=== PATIENT | female | born 1935 | race Caucasian/White ===

== ENCOUNTER 2020-05-16 14:30 | Emergency (ER) | payer MEDICARE, BC ==
[~2020-05-16] VITALS: Ht 157.5 cm; Wt 78.2 kg
[2020-05-16 14:45] VITALS: TEMP 97.9
[2020-05-16] MEDS ORDERED: SEROQUEL 2525 MG/TAB PO (15:10)
[2020-05-16] MEDS ORDERED: NORVASC 5MG5 MG/TAB PO (15:11)
[2020-05-16] MEDS ORDERED: TYLENOL PM EXTR1 TA1 PO (15:11)
[2020-05-16] MEDS ORDERED: CALCIUM 600 MG1 EAC2 PO (15:13)
[2020-05-16] MEDS ORDERED: ASPIRIN 81M81 MG/TA2 PO (15:14)
[2020-05-16] MEDS ORDERED: ONE-A-DAY ESSE1 EACH PO (15:14)
[2020-05-16] MEDS ORDERED: MYSOLINE 250MG250 MG PO (15:15)
[2020-05-16 15:31] LABS: COLLECTION METHOD CLEAN CATCH
[2020-05-16 15:37] LABS: PH 6 (5-8); SQUAMOUS EPITHELIAL 0-2 /hpf; URINE APPEARANCE Clear; URINE BACTERIA Rare /hpf; URINE BILIRUBIN Negative (NEGATIVE); URINE BLOOD Negative (NEGATIVE); URINE COLOR Yellow; URINE GLUCOSE Negative (NEGATIVE); URINE KETONE Negative (NEGATIVE); URINE LEUKOCYTE ESTERASE Negative (NEGATIVE); URINE NITRATE Negative (NEGATIVE); URINE PROTEIN(semi-quant) Negative (NEGATIVE); URINE RBC 0-2 /hpf; URINE UROBILINOGEN Negative (NEGATIVE)
[2020-05-16 15:50] LABS: BASO % 0.5 % (0.0-2.0); EOS # 0.1 (0.0-0.7); EOS % 1.1 % (0-4.0); GRAN # 4.8 (1.4-6.5); GRAN % 71.6 % (42.2-75.2); HEMATOCRIT 39.5 % (37.0-47.0); HEMOGLOBIN 12.5 g/dl (12.5-16.0); LYMPH # 1.3 (1.2-3.4); LYMPH % 19.2 % (20.0-51.0); MEAN CELL VOLUME 93 fl (80.0-100.0); MEAN CORPUSCULAR HEMOGLOBIN 29 pg (27.0-31.0); MEAN CORPUSCULAR HGB CONC 32 g/dl (33.0-37.0); MEAN PLATELET VOLUME 10.4 fl (7.4-10.4); MONO # 0.5 (0.1-0.6); MONO % 7.3 % (1.7-9.3); PLATELET COUNT 264 K/mm3 (130-400); RED BLOOD COUNT 4.27 M/mm3 (4.10-5.30); REDCELL DISTRIBUTION WIDTH-CV 14.4 % (11.5-14.5)
[2020-05-16 16:02] LABS: ALBUMIN 3.9 gm/dL (3.5-5.0); BILIRUBIN,TOTAL 0.4 mg/dL (0.0-1.0); C-REACTIVE PROTEIN 0.8 mg/dL (0.0-0.9); POTASSIUM 4.1 mmol/L (3.4-5.0); TOTAL PROTEIN 6.6 gm/dL (6.4-8.2)
[2020-05-16 16:41] VITALS: BP 140/90; PULSE 67
== END 2020-05-16 16:41 | disposition home or self-care (01) ==
LOC: COL.ER 14:30
PROVIDERS: Nurse Practitioner
DX: G20 Parkinson's disease (principal); R45.1 Restlessness and agitation; Z90.710 Acquired absence of both cervix and uterus; Z88.8 Allergy status to other drugs, medicaments and biological substances; Z79.82 Long term (current) use of aspirin
CPT/HCPCS: J7030

== ENCOUNTER 2020-07-20 18:41 | Observation (INO) | payer MEDICARE, BC ==
[~2020-07-20] VITALS: Ht 157.5 cm; Wt 76.7 kg
[~2020-07-20 18:41] MED LIST: ASPIRIN 81M81 MG/TA2 PO; CALCIUM 600 MG1 EAC2 PO; MYSOLINE 250MG250 MG PO; NORVASC 5MG5 MG/TAB PO; ONE-A-DAY ESSE1 EACH PO; SEROQUEL 2525 MG/TAB PO; TYLENOL PM EXTR1 TA1 PO
[2020-07-20 19:45] LABS: ALANINE AMINOTRANSFERASE 14 U/L (4-34); ALBUMIN 3.9 gm/dL (3.5-5.0); ALKALINE PHOSPHATASE 74 U/L (50-136); ANION GAP 9 mmol/L (7-16); AST,SGOT 28 U/L (15-37); BILIRUBIN,TOTAL 0.4 mg/dL (0.0-1.0); BLOOD UREA NITROGEN 19 mg/dL (7-17); CARBON DIOXIDE 26 mmol/L (22-30); CHLORIDE 104 mmol/L (98-107); CREATININE, serum 1.11 (0.52-1.25); GLUCOSE 112 mg/dL (74-106); POTASSIUM 4.4 mmol/L (3.4-5.0); SODIUM 139 mmol/L (137-145)
[2020-07-20 19:54] LABS: COLLECTION METHOD CLEAN CATCH
[2020-07-20 20:04] LABS: BASO % 0.3 % (0.0-2.0); EOS # 0.1 (0.0-0.7); EOS % 1.1 % (0-4.0); GRAN % 68.4 % (42.2-75.2); HEMOGLOBIN 11.2 g/dl (12.5-16.0); LYMPH # 1.5 (1.2-3.4); LYMPH % 20.5 % (20.0-51.0); MEAN CELL VOLUME 92 fl (80.0-100.0); MEAN CORPUSCULAR HEMOGLOBIN 29 pg (27.0-31.0); MEAN CORPUSCULAR HGB CONC 32 g/dl (33.0-37.0); MEAN PLATELET VOLUME 10.8 fl (7.4-10.4); MONO # 0.7 (0.1-0.6); MONO % 9.4 % (1.7-9.3); PLATELET COUNT 249 K/mm3 (130-400); RED BLOOD COUNT 3.84 M/mm3 (4.10-5.30); REDCELL DISTRIBUTION WIDTH-CV 15.1 % (11.5-14.5)
[2020-07-20 20:04] LABS: TROPONIN-I < 0.012 ng/mL (0.000-0.035)
[2020-07-20 20:07] LABS: HEMATOCRIT 35.3 % (37.0-47.0)
[2020-07-20 20:08] LABS: PROTHROMBIN TIME 10.8 SECONDS (9.7-12.8)
[2020-07-20 20:16] LABS: PH 6 (5-8); SQUAMOUS EPITHELIAL 0-2 /hpf; URINE APPEARANCE Clear; URINE BACTERIA None Seen /hpf; URINE BILIRUBIN Negative (NEGATIVE); URINE BLOOD 2+ (NEGATIVE); URINE COLOR Yellow; URINE GLUCOSE Negative (NEGATIVE); URINE KETONE Negative (NEGATIVE); URINE LEUKOCYTE ESTERASE Negative (NEGATIVE); URINE NITRATE Negative (NEGATIVE); URINE PROTEIN(semi-quant) Negative (NEGATIVE); URINE RBC 0-2 /hpf; URINE UROBILINOGEN Negative (NEGATIVE)
[2020-07-20] MEDS ORDERED: ATIVAN 0.50.5 MG/TAB PO (22:08)
--- NOTE | 2020-07-20 22:30 | NUR ---
SEE PRIOR NOTE.
--- NOTE | 2020-07-20 22:41 | NUR ---
PT ARRIVED FROM ED, VIA GURNEY AND ED NURSE. PT WAS ABLE TO AMBULATE X2 ASSIST BY SIDE. PT A/O X1 TO SELF. PT [facility]IN[facility] ALSO, SHE THINKS IT IS 1994. PT DENIES PAIN OR DISCOMFORT. NO SKIN ISSUES EXCEPT FOR MULTIPLE BRUISES ON HER LEGS AND ARMS THAT ARE SCATTERED. PT WORRIED ABOUT THE PRICES FOR HER MEALS. PT CAN ANSWER SOME QUESTIONS CORRECTLY. PT ALSO STATES THAT HER LAST BOWEL MOVEMENT WAS A COUPLE OF DAYS AGO. CALL LIGHT WITHIN REACH AND BED ALARM ON.
[2020-07-20 23:13] VITALS: BP 146/64; PULSE 57; TEMP 98
[2020-07-21] VITALS (8 sets, daily range): BP systolic 101–148; BP diastolic 40–58; PULSE 49–66; TEMP 97.6–98.2
--- NOTE | 2020-07-21 00:48 | NUR ---
PT HAD AN EPISODE OF NAUSEA AND VOMITING. PT DECLINED ANYTHING FOR IT. DID ADVISE ISAIAH GARAY OF INCIDENT. ALSO PT CLIMBED OVER RAIL TO GET OUT OF BED. PT WAS ASKED IF SHE NEEDED TO USE THE BATHROOM OR WHAT SHE NEEDED. PT DECLINED AND DID NOT NEED ANYTHING. PT STATED THAT SHE CLIMBS OVER THINGS AT HOME. PT WAS ADVISED TO PLEASE USE THE CALL LIGHT OR WE ARE RIGHT OUTSIDE THE DOOR TO CALL FOR US. PT STATED THAT SHE DID NOT KNOW HOW TO USE THE CALL LIGHT. SHE CALLED IT A THING.
--- NOTE | 2020-07-21 01:37 | NUR ---
PT TRIED TO GET OUT OF BED AGAIN, AND WAS REDIRECTED. IT TOOK SOME TIME TO REDIRECT HER. PT THOUGHT THAT HER WAS OUTSIDE THE ROOM. PT WANTED TO WALK TO THE NURSES' STATION, BUT GAIT UNSTEADY. OFFERED TO TAKE TO THE BATHROOM OR USE BEDSIDE COMMODE AND PT REFUSED. PT DID EVENTUALLY GET BACK IN BED AFTER ABOUT 15 TO 20 MINUTES OF TALKING TO HER. PT HAS CALL LIGHT WITHIN REACH AND BED ALARM ON.
--- NOTE | 2020-07-21 04:32 | NUR ---
PT HAD NO URINATED SINCE SHE HAS GOTTEN TO THE UNIT. NOTIFIED ISAIAH GARAY, AND SHE ADVISED IF SHE DOES NOT VOID SOON TO BLADDER SCAN AND GIVE HER A CALL. WENT INTO PT'S ROOM AND BLADDER SCANNED HER, SHE ONLY HAD OVE 200 ML IN BLADDER. PT DECIDED THAT SHE NEEDED TO GO TO THE BATHROOM AFTER BEING BLADDER SCANNED. PT'S OUTPUT OF URINE WAS 200 ML AND SHE DID HAVE A LITTLE INCONTINENCE. PT DID GO BACK TO BED WITH NO PROBLEM.
--- NOTE | 2020-07-21 08:10 | NUR ---
Dr Cortes here to see patient.
--- NOTE | 2020-07-21 08:53 | NUR ---
Pt is awake and obeys commands after a few (2-3) attempts. Pt is confused where she is and has some disorientation. Heart tones are present and no murmurs noted. Lung sounds are clear all lobes. Pt deniend abdominal auscultation, but abdomen is flat and non-distended. Ortostatic vitals were obtained this morning. Dr. Cortes came in and consulted with the patient and daughter.
[2020-07-21 09:10] LABS: BASO % 0.3 % (0.0-2.0); EOS # 0.2 (0.0-0.7); EOS % 2.3 % (0-4.0); GRAN # 3.8 (1.4-6.5); GRAN % 54.5 % (42.2-75.2); HEMATOCRIT 35.9 % (37.0-47.0); HEMOGLOBIN 11.7 g/dl (12.5-16.0); LYMPH # 2.4 (1.2-3.4); LYMPH % 33.8 % (20.0-51.0); MEAN CELL VOLUME 91 fl (80.0-100.0); MEAN CORPUSCULAR HEMOGLOBIN 30 pg (27.0-31.0); MEAN CORPUSCULAR HGB CONC 33 g/dl (33.0-37.0); MEAN PLATELET VOLUME 10.8 fl (7.4-10.4); MONO # 0.6 (0.1-0.6); MONO % 8.8 % (1.7-9.3); PLATELET COUNT 244 K/mm3 (130-400); RED BLOOD COUNT 3.93 M/mm3 (4.10-5.30); REDCELL DISTRIBUTION WIDTH-CV 15.2 % (11.5-14.5)
[2020-07-21 09:14] LABS: CALCIUM 8.6 mg/dL (8.4-10.2); CREATININE, serum 0.94 (0.52-1.25); POTASSIUM 4.3 mmol/L (3.4-5.0)
--- NOTE | 2020-07-21 10:18 | NUR ---
GIRMA contacted the patient's daughter, Nargis Ibrahim (ph#[phone]), to discuss discharge plan. The patient lives in [place] with her other daughter, Chica. Nargis reports that the patient needs some supervision with using the restroom and bathing and that she has a rolaider. The patient's PCP is Dr. Patrick Hodge and she receives her medications from [facility]. Nargis reports no difficulties obtaining the patient's meds. The patient does not have a DPOA-HC in EMR. Nargis reports that she believes the patient has one done and that it designated her late sister and then herself and then Chica. She reports she is unsure where the document is at at would have to look for it. Nargis reports that the patient's has and that she has two living children: Herself and Chica. Nargis reports that she is unsure if they would want to pursue shelter vs home with home health. She reports that the patient has eye surgery on Monday. PT/OT are recommending home with home health. GIRMA informed Nargis of this and how shelter placement would be [id number] with her being observation status. Nargis reports that she will need to talk to her sister, but that they will probably look at home with home health. Nargis requests that SW leave the Medicare.gov list of home health agencies that serve [place] at the nurses station and she will ask for it when she comes in after work this evening. Nargis would like to look over the list with the patient and her sister to decide on preference. SW to continue to follow. *Discharge plan: home with daughter and home health*
--- NOTE | 2020-07-21 11:17 | NUR ---
Patient alert, confusion upon waking, but clear now. Answers questions appropriately. Gait shuffling, uses walker with ambulation. 2+ BLE edema noted, pulses 1+. No c/o at this time.
--- NOTE | 2020-07-21 13:05 | NUR ---
Patient gradually has become combative since approximately 1130 this a.m. Continually yelling, stating "the Doctor told me I can go home and I want to leave". Difficult at times to redirect. Patients daughter calls and request patient remains in hospital until "patient stops hitting the windows and hernadez at night". Daughter states patient "wanders all night long and daughter doesn't get any sleep because of it". Offered to speak with social work about patient placement, daughter denies, would prefer she remain in hospital "until you can make her stop hitting the windows and hernadez". Reviewed with daughter that patient will need cephalometric technician placement for this, denied.
--- NOTE | 2020-07-21 13:44 | NUR ---
GIRMA attended clinical rounds. The patient is ready to d/c today. GIRMA attempted to contact the patient's daughter, Nargis, to update. GIRMA was unable to leave a voicemail, due to her mailbox being full. GIRMA then contacted and updated the patient's daughter, Chica. The patient's RN then notified GIRMA that Chica is reporting that the patient gets up at night and bangs on the windows and would like for the patient to stay here until her behaviors are resolved. Nargis then contacted the surgical unit and her RN was able to give her an update. Her RN then transferred Nargis to this . Nargis is agreeable with the patient discharging today and would like to go ahead and use [facility] again. She states that the patient used to receive services from them in the past. Nargis reports that she will be up to the hospital after work to bring the patient home. GIRMA updated the clinical team. GIRMA contacted and faxed a referral to Jillian at [facility]. Awaiting screen.
--- NOTE | 2020-07-21 13:49 | NUR ---
Initial visit; Patient having a difficult time communicating. Selin continued to frustrate herself trying to conversate with Shoe Repairer Helper. Shoe Repairer Helper listened, offered empathy (while discerning patient was showing signs of dementia or alzheimers disease. Shoe Repairer Helper offered God's blessings to patient and wished her well.
[2020-07-21] MEDS ORDERED: MELATIN 3 MG-11 TAB PO (13:59)
[2020-07-21] MEDS ORDERED: SINEMET 25/101 UDTAB PO (14:03)
--- NOTE | 2020-07-21 16:06 | NUR ---
Jillian, at [facility], reports that they are able to accept the patient for services. The patient is to discharge back home with her daughter today, 07/21, with home health services for shelter/PT/OT from [facility]. SW notified and faxed d/c orders to Jillian at [facility]. No additional needs at this time.
--- NOTE | 2020-07-21 18:59 | NUR ---
Discharge instructions reviewed with patient and daughter, verbalized understanding. Discharged via wheelchair to auto/home with family at 1900.
== END 2020-07-21 18:59 | disposition home or self-care (01) ==
LOC: COL.ER 18:41 → SURG 20:41
PROVIDERS: Emergency Medicine; Student in an Organized Health Care Education/Training Program; ADMIT Family Medicine
DX: G20 Parkinson's disease (principal); G47.9 Sleep disorder, unspecified; R44.3 Hallucinations, unspecified; H33.312 Horseshoe tear of retina without detachment, left eye; D64.9 Anemia, unspecified; I10 Essential (primary) hypertension; I95.1 Orthostatic hypotension; F02.80 Dementia in other diseases classified elsewhere, unspecified severity, without behavioral disturbance, psychotic disturbance, mood disturbance, and anxiety; Z88.8 Allergy status to other drugs, medicaments and biological substances; Z90.710 Acquired absence of both cervix and uterus; Z89.422 Acquired absence of other left toe(s); Z79.82 Long term (current) use of aspirin; W19.XXXA Unspecified fall, initial encounter; Z79.899 Other long term (current) drug therapy
CPT/HCPCS: 99223-AI; G0378; J1650

== ENCOUNTER 2020-07-31 08:15 | Emergency (ER) | payer MEDICARE, BC ==
[~2020-07-31] VITALS: Ht 157.5 cm; Wt 74.5 kg
[~2020-07-31 08:15] MED LIST changes: +ATIVAN 0.50.5 MG/TAB PO; +MELATIN 3 MG-11 TAB PO; +SINEMET 25/101 UDTAB PO
[2020-07-31 08:23] VITALS: TEMP 97.6
[2020-07-31 09:44] LABS: BASO % 0.5 % (0.0-2.0); EOS # 0.1 (0.0-0.7); EOS % 1.7 % (0-4.0); GRAN # 4.3 (1.4-6.5); GRAN % 66.5 % (42.2-75.2); HEMATOCRIT 40.7 % (37.0-47.0); HEMOGLOBIN 13.1 g/dl (12.5-16.0); LYMPH # 1.6 (1.2-3.4); LYMPH % 24.8 % (20.0-51.0); MEAN CELL VOLUME 91 fl (80.0-100.0); MEAN CORPUSCULAR HEMOGLOBIN 29 pg (27.0-31.0); MEAN CORPUSCULAR HGB CONC 32 g/dl (33.0-37.0); MEAN PLATELET VOLUME 10.1 fl (7.4-10.4); MONO # 0.4 (0.1-0.6); MONO % 6.3 % (1.7-9.3); PLATELET COUNT 254 K/mm3 (130-400); RED BLOOD COUNT 4.48 M/mm3 (4.10-5.30); REDCELL DISTRIBUTION WIDTH-CV 14.8 % (11.5-14.5)
[2020-07-31 09:54] LABS: ALANINE AMINOTRANSFERASE 5 U/L (4-34); ALBUMIN 3.7 gm/dL (3.5-5.0); ALKALINE PHOSPHATASE 86 U/L (50-136); ANION GAP 6 mmol/L (7-16); AST,SGOT 25 U/L (15-37); BILIRUBIN,TOTAL 0.2 mg/dL (0.0-1.0); BLOOD UREA NITROGEN 11 mg/dL (7-17); CALCIUM 8.9 mg/dL (8.4-10.2); CARBON DIOXIDE 29 mmol/L (22-30); CHLORIDE 105 mmol/L (98-107); CREATININE, serum 0.91 (0.52-1.25); GLUCOSE 102 mg/dL (74-106); LIPASE 42 U/L (23-300); POTASSIUM 4.4 mmol/L (3.4-5.0); SODIUM 140 mmol/L (137-145); TOTAL PROTEIN 6.8 gm/dL (6.4-8.2)
[2020-07-31 10:11] LABS: TROPONIN-I < 0.012 ng/mL (0.000-0.035)
[2020-07-31 10:26] VITALS: BP 147/56; PULSE 59
== END 2020-07-31 10:26 | disposition home or self-care (01) ==
LOC: COL.ER 08:15
PROVIDERS: Emergency Medicine
DX: G20 Parkinson's disease (principal); Z88.1 Allergy status to other antibiotic agents; Z79.82 Long term (current) use of aspirin

== ENCOUNTER 2020-08-14 21:20 | Emergency (ER) | payer MEDICARE, BC ==
[~2020-08-14] VITALS: Ht 157.5 cm; Wt 77.3 kg
[2020-08-14 21:21] VITALS: TEMP 98.5
[2020-08-14 22:19] LABS: BASO % 0.1 % (0.0-2.0); EOS # 0.1 (0.0-0.7); EOS % 1.1 % (0-4.0); GRAN # 6.9 (1.4-6.5); GRAN % 75.8 % (42.2-75.2); HEMOGLOBIN 11.8 g/dl (12.5-16.0); LYMPH # 1.4 (1.2-3.4); LYMPH % 14.8 % (20.0-51.0); MEAN CELL VOLUME 91 fl (80.0-100.0); MEAN CORPUSCULAR HEMOGLOBIN 29 pg (27.0-31.0); MEAN CORPUSCULAR HGB CONC 32 g/dl (33.0-37.0); MEAN PLATELET VOLUME 10.4 fl (7.4-10.4); MONO # 0.7 (0.1-0.6); MONO % 7.7 % (1.7-9.3); PLATELET COUNT 279 K/mm3 (130-400); RED BLOOD COUNT 4.09 M/mm3 (4.10-5.30); REDCELL DISTRIBUTION WIDTH-CV 14.5 % (11.5-14.5)
[2020-08-14 22:28] LABS: ALANINE AMINOTRANSFERASE 14 U/L (4-34); ALBUMIN 3.9 gm/dL (3.5-5.0); ALKALINE PHOSPHATASE 77 U/L (50-136); ANION GAP 8 mmol/L (7-16); AST,SGOT 25 U/L (15-37); BILIRUBIN,TOTAL 0.3 mg/dL (0.0-1.0); BLOOD UREA NITROGEN 20 mg/dL (7-17); CALCIUM 8.9 mg/dL (8.4-10.2); CARBON DIOXIDE 26 mmol/L (22-30); CHLORIDE 103 mmol/L (98-107); CREATININE, serum 1.01 (0.52-1.25); GLUCOSE 104 mg/dL (74-106); POTASSIUM 4.1 mmol/L (3.4-5.0); SODIUM 137 mmol/L (137-145); TOTAL PROTEIN 6.9 gm/dL (6.4-8.2)
[2020-08-14 22:30] LABS: COLLECTION METHOD CLEAN CATCH
[2020-08-14 22:37] LABS: PH 6 (5-8); SQUAMOUS EPITHELIAL 0-2 /hpf; URINE APPEARANCE Clear; URINE BACTERIA None Seen /hpf; URINE BILIRUBIN Negative (NEGATIVE); URINE BLOOD Negative (NEGATIVE); URINE COLOR Yellow; URINE GLUCOSE Negative (NEGATIVE); URINE KETONE Negative (NEGATIVE); URINE LEUKOCYTE ESTERASE Negative (NEGATIVE); URINE NITRATE Negative (NEGATIVE); URINE PROTEIN(semi-quant) Negative (NEGATIVE); URINE RBC 0-2 /hpf; URINE UROBILINOGEN Negative (NEGATIVE)
[2020-08-14 22:45] LABS: TROPONIN-I < 0.012 ng/mL (0.000-0.035)
[2020-08-14 23:50] VITALS: BP 130/50; PULSE 88
== END 2020-08-14 23:55 | disposition home or self-care (01) ==
LOC: COL.ER 21:20
PROVIDERS: Emergency Medicine
DX: G20 Parkinson's disease (principal); F02.81 Dementia in other diseases classified elsewhere, unspecified severity, with behavioral disturbance; I10 Essential (primary) hypertension; Z88.8 Allergy status to other drugs, medicaments and biological substances; Z79.899 Other long term (current) drug therapy; Z79.82 Long term (current) use of aspirin